=== PATIENT | female | born 1970 | race Caucasian/White ===

== ENCOUNTER 2016-07-28 15:54 | Emergency (ER) | payer MEDICAID ==
[~2016-07-28] VITALS: Ht 157.5 cm; Wt 78.9 kg
[2016-07-28 16:26] VITALS: BP 133/73
--- NOTE | 2016-07-28 20:06 | NUR ---
Patient to bed 06.
--- NOTE | 2016-07-28 20:15 | NUR ---
Patient being evaluated by at bedside.
[2016-07-28] MEDS ORDERED: diphenhydrAMINE 50 MG CAP PO ONE (20:25)
[2016-07-28] MEDS ORDERED: METOCLOPRAMIDE 10 MG TAB PO ONE (20:25)
[2016-07-28] MEDS ORDERED: DEXAMETHASONE 4 MG TAB PO ONE (20:25)
--- NOTE | 2016-07-28 20:45 | NUR ---
45Y/F PATIENT PRESENTS TO ED WITH C/O N/V X 3 DAYS . PT STATES HAVING N/V X 3 DAYS, DENIES FEVER NOR DIARRHEA . ; SKIN IS PINK/WARM/DRY; AAOX4 WITH EVEN AND STEADY GAIT; LUNGS CLEAR BL; HR EVEN AND REGULAR; PT DENIES ANY FEVER, CP, SOB, OR COUGH AT THIS TIME; PATIENT STATES PAIN OF 0/10 AT THIS TIME; VSS; PATIENT POSITIONED FOR COMFORT; HOB ELEVATED; BEDRAILS UP X2; BED DOWN. ER MD MADE AWARE OF PT STATUS.
--- NOTE | 2016-07-28 21:52 | NUR ---
Patient discharged with v/s stable. Written and verbal after care instructions given and explained. Patient alert, oriented and verbalized understanding of instructions. Ambulatory with steady gait. All questions addressed prior to discharge. ID band removed. Patient advised to follow up with PMD. Rx of MOTRIN 600 MG, ZOFRAN 4 MG given. Patient educated on indication of medication including possible reaction and side effects. Opportunity to ask questions provided and answered.
[2016-07-28 21:53] VITALS: BP 130/75
== END 2016-07-28 21:52 | disposition home or self-care (01) ==
LOC: MED 15:54
DX: R51 Headache (principal); R11.0 Nausea; R35.8 Other polyuria; R03.0 Elevated blood-pressure reading, without diagnosis of hypertension
CPT/HCPCS: 81002; 81025; 82948; 99284; J8597; Q0163

== ENCOUNTER 2018-10-25 22:05 | Emergency (ER) | payer MEDICAID ==
[~2018-10-25] VITALS: Ht 160 cm; Wt 83.0 kg
[2018-10-25 22:35] VITALS: BP 142/69
--- NOTE | 2018-10-25 22:41 | NUR ---
PT AMBULATED TO BED 1 WITH SON
--- NOTE | 2018-10-25 22:45 | NUR ---
47 YO F BIB SELF PRESENTS TO ED C/O N/V X 4 EPISODES ACCOMPANIED BY DIZZINESS AND 5/10 HEADACHE X 10 HOURS. DENIES CP/SOB. -- SKIN PINK, DRY, WARM. BREATHING EVEN, UNLABORED. -- LAST BM: TODAY, NORMAL. BOWEL SOUNDS PRESENT, ACTIVE. DENIES ABD PAIN. -- PT ALERT, CALM, COOPERATIVE. BEHAVIOR APPROPRIATE. PMH-- RX-- MOTRIN AT 1600, LITTLE RELIEF
[2018-10-25] MEDS ORDERED: ONDANSETRON 4 MG TAB PO ONE (23:40)
[2018-10-25] MEDS ORDERED: KETOROLAC 60 MG/2 ML VIAL IM ONE (23:45)
--- NOTE | 2018-10-26 | NUR ---
PT RECIEVED 60 MG IM TORADOL AND 4 MG PO ZOFRAN. WILL CONTINUE TO MONITOR FOR EFFECTIVENESS.
--- NOTE | 2018-10-26 00:15 | NUR ---
LAB AT BEDSIDE.
[2018-10-26 00:21] LABS: BASOPHILS % (AUTO) 0.7 % (0.0-2.0); EOSINOPHILS # (AUTO) 0.1 K/uL (0-0.4); EOSINOPHILS % (AUTO) 1.4 % (0.0-4.0); HEMATOCRIT 39.7 % (36-48); HEMOGLOBIN 13.2 g/dL (12.0-16.0); LYMPHOCYTES # (AUTO) 1.9 K/uL (2.5-16.5); LYMPHOCYTES % (AUTO) 28.5 % (20.5-51.1); MEAN CORPUSCULAR HEMOGLOBIN 30 pg (27-31); MEAN CORPUSCULAR HGB CONC 33 g/dL (33-37); MEAN CORPUSCULAR VOLUME 89.1 fL (80-94); MONOCYTES # (AUTO) 0.7 K/uL (0.8-1.0); MONOCYTES % (AUTO) 10.3 % (1.7-9.3); NEUTROPHILS # (AUTO) 3.9 K/uL (1.8-7.7); NEUTROPHILS % (AUTO) 59.1 % (42.2-75.2); PLATELET COUNT (AUTO) 137 K/uL (140-450); RED BLOOD CELL COUNT(AUTO) 4.46 MIL/uL (4.20-5.40); RED CELL DISTRIBUTION WIDTH 13.5 % (11.6-13.7); WHITE BLOOD COUNT (AUTO) 6.6 K/uL (4.8-10.8)
[2018-10-26 00:21] LABS: APPEARANCE,URINE HAZY (CLEAR); BILIRUBIN,URINE NEGATIVE (NEGATIVE); BLOOD, URINE NEGATIVE (NEGATIVE); COLOR,URINE YELLOW (YELLOW); LEUKOCYTE ESTERASE ,URINE NEGATIVE (NEGATIVE); NITRITE, URINE NEGATIVE (NEGATIVE); PH,URINE 8.5 (5.0-9.0); UGLUCOSE NEGATIVE (NEGATIVE)
[2018-10-26 00:30] LABS: ANION GAP 9.4 (8-16); CARBON DIOXIDE 28.1 mmol/L (21-32); CREATININE 0.8 mg/dL (0.6-1.3); POTASSIUM 3.5 mmol/L (3.5-5.1)
[2018-10-26 00:31] LABS: RBC,URINE 0-5 /HPF (0-5); WBC,URINE 0-5 /HPF (0-5)
[2018-10-26 00:36] LABS: ALBUMIN 2.9 g/dL (3.4-5.0); TOTAL BILIRUBIN 0.6 mg/dL (0.0-1.0)
--- NOTE | 2018-10-26 00:45 | NUR ---
PT REPORTS 0/10 PAIN AND DENIES N/V. MEDICATIONS EFFECTIVE.
[2018-10-26 01:00] VITALS: BP 137/72
--- NOTE | 2018-10-26 01:00 | NUR ---
Patient discharged with v/s stable. Written and verbal after care instructions given and explained by Dr. Mendosa. Patient alert, oriented and verbalized understanding of instructions. Ambulatory with steady gait. All questions addressed prior to discharge. ID band removed. Patient advised to follow up with PMD. Rx of Naprosyn given. Patient educated on indication of medication including possible reaction and side effects. Opportunity to ask questions provided and answered.
== END 2018-10-26 01:00 | disposition home or self-care (01) ==
LOC: MED 22:05
DX: G44.209 Tension-type headache, unspecified, not intractable (principal); R11.2 Nausea with vomiting, unspecified
CPT/HCPCS: 36415; 80053; 81001; 85025; 96372; 99283; J1885; Q0162